=== PATIENT | female | born 2000 | race African-American/Black ===

== ENCOUNTER 2022-10-23 21:16 | Emergency (ER) | payer MEDICAID, OTHER ==
--- NOTE | 2022-10-23 22:37 | ED Physician Documentation ---
History of Present Illness - Stated complaint Stated Complaint: SOA/N/V - Chief complaint Chief Complaint: Resp - History obtained from History obtained from: Patient - Additonal information Additional information: HPI From patient. Patient c/o one week of nausea, vomiting; today has been having difficulty tolerating PO including liquids. This morning, she developed dyspnea, worse with exertion, as well as dry/nonproductive cough. She has had constant but waxing and waning midline anterior chest pain, described as burning, 6 (out of 10) at worst. Denies fever. Earlier today, she took a home test with (+) result. She was not aware she was before this test. This is her first . She says she is approximately 5 weeks . She denies vaginal bleeding but has had some suprapubic cramping, intermittent over past 1-2 days Review of Systems Constitutional: denies: Fever, Chills, Sweats Cardiac: reports: Chest pain / pressure. denies: Palpitations, Pedal edema Respiratory: reports: Dyspnea, Cough. denies: Hemoptysis, Wheezing GI: denies: Reviewed and negative PD PAST MEDICAL HISTORY - Past Medical History Past Medical History: No - Present Medications Home Medications: Ambulatory Orders Medication Instructions Recorded Confirmed Lidocaine Viscous 2% [Xylocaine 15 ml MM Q6HR PRN #100 ml 10/24/22 Viscous 2%] ONDANSETRON ODT Prepack 2 [ZOFRAN 4 mg TL Q6H PRN #14 tablet 10/24/22 ODT Prepack 2] - Allergies Allergies/Adverse Reactions: Allergies Allergy/AdvReac Type Severity Reaction Status Date / Time No Known Drug Allergies Allergy Verified 10/23/22 21:37 - Living Situation Living Arrangement: reports: At home PD ED PE NORMAL - Vitals Vital signs reviewed: Yes - General General: Alert and oriented X 3, No acute distress, Well developed/nourished - HEENT HEENT: Other (tacky mucous membranes) - Neck Neck: Supple, no meningeal sign - Cardiac Cardiac: RRR, No murmur - Respiratory Respiratory: No respiratory distress, Clear bilaterally - Abdomen Abdomen: Normal bowel sounds, Soft, Non tender, Non distended Results - Vitals Vitals: Oxygen O2 Source Room air - EKG (time done) No standard instances EKG releavant findings:: EKG personally interpreted by author of this note. Relevant findings are: Rate: Rate (enter#) (72) Rhythm: NSR Wiggins: Normal Intervals: Normal [place] QRS: Normal Ischemia: Normal ST segments - Labs Labs: Laboratory Tests 10/23/22 10/23/22 10/23/22 22:35 22:35 22:45 WBC 15.5 H RBC 4.34 Hgb 11.8 L Hct 35.6 L MCV 82.0 MCH 27.2 MCHC 33.1 RDW 13.2 Plt Count 308 MPV 10.1 Neut # (Auto) 12.0 H Lymph # (Auto) 2.5 Sibley # (Auto) 0.9 Eos # (Auto) 0.0 Baso # (Auto) 0.0 Absolute Nucleated RBC 0.00 Nucleated RBC % 0.0 Sodium 134 L Potassium 3.8 Chloride 103 Carbon Dioxide 25 Anion Gap 6.0 BUN 10 Creatinine 0.7 Estimated GFR (MDRD) 129 Glucose 107 H Calcium 9.1 Total Bilirubin 0.5 AST 11 ALT 10 Alkaline Phosphatase 56 Total Protein 7.9 Albumin 3.8 Globulin 4.1 Albumin/Globulin Ratio 0.9 L Lipase 31 HCG, Quant 22863.00 Urine Color Urine Clarity Urine pH Ur Specific [place] Urine Protein Urine Glucose (UA) Urine Ketones Urine Occult Blood Urine Nitrite Urine Bilirubin Urine Urobilinogen Ur Leukocyte Esterase Ur Microscopic Review Urine Culture Comments Nasal Adenovirus (PCR) Nasal B. parapertussis DNA (PCR) Nasal Coronavir 229E PCR Nasal Coronavir HKU1 PCR Nasal Coronavir NL63 PCR Nasal Coronavir OC43 PCR Nasal Enterovir/Rhinovir PCR Nasal Influenza B PCR Nasal Influenza A PCR Nasal Parainfluen 1 PCR Nasal Parainfluen 2 PCR Nasal Parainfluen 3 PCR Nasal Parainfluen 4 PCR Nasal RSV (PCR) Nasal B.pertussis DNA PCR Nasal C.pneumoniae (PCR) Ki Human Metapneumo PCR Nasal M.pneumoniae (PCR) Nasal SARS-CoV-2 (PCR) 10/23/22 10/23/22 23:01 23:08 WBC RBC Hgb Hct MCV MCH MCHC RDW Plt Count MPV Neut # (Auto) Lymph # (Auto) Sibley # (Auto) Eos # (Auto) Baso # (Auto) Absolute Nucleated RBC Nucleated RBC % Sodium Potassium Chloride Carbon Dioxide Anion Gap BUN Creatinine Estimated GFR (MDRD) Glucose Calcium Total Bilirubin AST ALT Alkaline Phosphatase Total Protein Albumin Globulin Albumin/Globulin Ratio Lipase HCG, Quant Urine Color YELLOW Urine Clarity CLEAR Urine pH 6.5 Ur Specific [place] 1.020 Urine Protein NEGATIVE Urine Glucose (UA) NEGATIVE Urine Ketones 15 H Urine Occult Blood TRACE-INTA Urine Nitrite NEGATIVE Urine Bilirubin NEGATIVE Urine Urobilinogen 1 (NORMAL) Ur Leukocyte Esterase NEGATIVE Ur Microscopic Review NOT INDICATED Urine Culture Comments NOT INDICATED Nasal Adenovirus (PCR) NOT DETECTED Nasal B. parapertussis DNA (PCR) NOT DETECTED Nasal Coronavir 229E PCR NOT DETECTED Nasal Coronavir HKU1 PCR NOT DETECTED Nasal Coronavir NL63 PCR NOT DETECTED Nasal Coronavir OC43 PCR NOT DETECTED Nasal Enterovir/Rhinovir PCR NOT DETECTED Nasal Influenza B PCR NOT DETECTED Nasal Influenza A PCR NOT DETECTED Nasal Parainfluen 1 PCR NOT DETECTED Nasal Parainfluen 2 PCR NOT DETECTED Nasal Parainfluen 3 PCR NOT DETECTED Nasal Parainfluen 4 PCR NOT DETECTED Nasal RSV (PCR) NOT DETECTED Nasal B.pertussis DNA PCR NOT DETECTED Nasal C.pneumoniae (PCR) NOT DETECTED Ki Human Metapneumo PCR NOT DETECTED Nasal M.pneumoniae (PCR) NOT DETECTED Nasal SARS-CoV-2 (PCR) NOT DETECTED - Rads (name of study) chest xray Relevant Findings:: Prelim report reviewed, EMP independent interpretation of test (I reviewed these images and my interpretation is no acute disease including no evidence of pneumonia, pneumothorax. normal cardiac sillhouette), See rad report 1st trimester OB US Relevant Findings:: Prelim report reviewed, See rad report PD Medical Decision Making - ED course Complexity details: reviewed results, re-evaluated patient, considered differential, d/w patient ED course: Tests ordered and results reviewed by me: CBC, ER abdominal panel, UA, serum HCG quantitative, respiratory PCR panel, EKG, CXR, 1st trimester OB ultrasound. Leukocytosis noted (15.5) on CBC. Minimal hyponatremia (134), normal LFTs. HCG quantitative is 74, 791. UA negative except for 15 ketones. Respiratory PCR panel negative for all viruses tested. CXR is normal. US shows IUP, 6w 1 d, left ovarian cyst, small subchorionic hemorrhage. Patient is given 1 liter IV normal saline, 4mg IV zofran. She reports significant improvement with these measures alone when reevaluated. She asks for something to help with the chest discomfort. The description (midline, from epigastrium going up to mid chest, burning sensation) is suggestive of GERD, and thus she is given 30cc maalox with 15ml viscous lidocaine. She is provided take- home pack of TL zofran, and e-prescribed zofran and viscous lidocaine. Results d/w patient. Etiology of her symptoms is not apparent at this time, but viral URI is strongly suspected. Return precautions reviewed. Advised to follow up with PMD as well as with cardiac rehabilitation specialist Departure - Departure Disposition: 01 Home, Self Care Clinical Impression: Upper respiratory infection Qualifiers: URI type: unspecified URI Qualified Code(s): J06.9 - Acute upper respiratory infection, unspecified Qualifiers: Weeks of gestation: less than 8 weeks Qualified Code(s): Z3A.01 - Less than 8 weeks gestation of Condition: Good Instructions: ED Care, ED URI Viral Follow-Up: Lea Armas DO [Provider Admit Priv/Credential] - Prescriptions: Lidocaine Viscous 2% [Xylocaine Viscous 2%] 15 ml MM Q6HR PRN #100 ml PRN Reason: Heartburn ONDANSETRON ODT Prepack 2 [ZOFRAN ODT Prepack 2] 4 mg TL Q6H PRN #14 tablet PRN Reason: Nausea / Vomiting Comments: Your ultrasound shows a in the uterus that is approximately 6 weeks and 1 days old. There is a small left ovarian cyst, and a small amount of blood accumulated in the uterus adjacent to the . The cause of the accumulation of blood is not apparent, but it is a small size and thus does not have any prognostic value (does not indicate that there will be a problem with the ). Is important that you follow-up with an SILVICULTURIST. Included on these discharge instructions are the name, office information ,and contact phone number for one of the local cardiac rehabilitation specialist groups. You can contact that office and inquire as to whether or not someone in that office would be able to accommodate follow-up for you. Your chest x-ray was normal, the nasal swab was negative for the viruses tested (including COVID and influenza), and your blood work had no concerning findings. I am providing you with a prescription for ondansetron (the antinausea medication that you were given in the emergency department). I am also providing with a prescription for the numbing agent (lidocaine). If you use the lidocaine, I recommend that you mix it with a tablespoon of liquid Maalox to help mask the otherwise unpleasant taste of the lidocaine. Discharge Date/Time: 10/24/22 03:01
[2022-10-23 22:43] LABS: BASOPHILS % (AUTO) 0.2 %; EOSINOPHILS % (AUTO) 0.1 %; HCT - HEMATOCRIT 35.6 % (37.0-47.0); HGB - HEMOGLOBIN 11.8 g/dL (12.0-16.0); LYMPHOCYTES # (AUTO) 2.5 10^3/uL (1.5-3.5); LYMPHOCYTES % (AUTO) 15.8 %; MEAN CORPUSCULAR HEMOGLOBIN 27.2 pg (27.0-31.0); MEAN CORPUSCULAR HGB CONC 33.1 g/dL (32.0-36.0); MEAN PLATELET VOLUME 10.1 fL (7.9-10.8); MONOCYTES # (AUTO) 0.9 10^3/uL (0.0-1.0); NEUTROPHILS % (AUTO) 77.4 %; PLT - PLATELET COUNT 308 10^3/uL (130-450); RED BLOOD COUNT 4.34 10^6/uL (4.20-5.40); RED CELL DISTRIBUTION WIDTH 13.2 % (12.0-15.0); WHITE BLOOD COUNT 15.5 x10^3/uL (4.8-10.8)
[2022-10-23 22:55] LABS: ALBUMIN 3.8 g/dL (3.2-5.5); ALBUMIN/GLOBULIN RATIO 0.9 (1.0-2.2); BILIRUBIN,TOTAL 0.5 mg/dL (0.2-1.0); CALCIUM 9.1 mg/dL (8.5-10.3); CREATININE 0.7 mg/dL (0.4-1.0); POTASSIUM 3.8 mmol/L (3.5-5.0); TOTAL PROTEIN 7.9 g/dL (6.7-8.2)
[2022-10-23] MEDS ORDERED: ONDANSETRON 4 MG/2 ML VIAL IVP STA (23:04)
[2022-10-23] MEDS ORDERED: SODIUM CHLORIDE 0.9% 1,000 ML IV STA (23:04)
[2022-10-23 23:10] LABS: BILIRUBIN,URINE NEGATIVE (NEGATIVE); GLUCOSE, URINE (UA) NEGATIVE (NEGATIVE); KETONES,URINE (UA) 15 mg/dL (NEGATIVE); LEUKOCYTE ESTERASE, URINE NEGATIVE (NEGATIVE); NITRITE,URINE NEGATIVE (NEGATIVE); OCCULT BLOOD,URINE TRACE-INTA (NEGATIVE); PH,URINE 6.5 PH (5.0-7.5); PROTEIN,URINE NEGATIVE (NEGATIVE); UROBILINOGEN,URINE 1 (NORMAL) E.U./dL (NORMAL)
[2022-10-23 23:11] LABS: CLARITY,URINE CLEAR (CLEAR)
[2022-10-24 00:06] LABS: B. PARAPERTUSSIS- RESP PCR PAN NOT DETECTED; B. PERTUSSIS- RESP PCR PANEL NOT DETECTED; C. PNEUMONIAE- RESP PCR PANEL NOT DETECTED; CORONAVIRUS 229E-RESP PCR NOT DETECTED; CORONAVIRUS HKU1-RESP PCR NOT DETECTED; CORONAVIRUS NL63-RESP PCR NOT DETECTED; CORONAVIRUS OC43-RESP PCR NOT DETECTED; HUMAN METAPNEUMOVIRUS NOT DETECTED; INFLUENZA A- RESP PCR PANEL NOT DETECTED; INFLUENZA B - RESP PCR PANEL NOT DETECTED; M. PNEUMONIAE- RESP PCR PANEL NOT DETECTED; PARAINFLUENZA VIRUS 1 NOT DETECTED; PARAINFLUENZA VIRUS 2 NOT DETECTED; PARAINFLUENZA VIRUS 3 NOT DETECTED; PARAINFLUENZA VIRUS 4 NOT DETECTED; RHINOVIRUS/ENTEROVIRUS NOT DETECTED; RSV- RESP PCR PANEL NOT DETECTED; SARS-CoV-2 -RESP PCR PANEL NOT DETECTED
--- NOTE | 2022-10-24 00:36 | XRAY Report ---
PROCEDURE: Chest 1 View X-Ray INDICATIONS: chest pain TECHNIQUE: One view of the chest was acquired. COMPARISON: None. FINDINGS: Surgical changes and devices: None. Lungs and pleura: No pleural effusions or pneumothorax. Lungs are clear. Mediastinum: Mediastinal contours appear normal. Heart size is normal. Bones and chest wall: No suspicious bony lesions. Overlying soft tissues appear unremarkable. IMPRESSION: No acute cardiopulmonary disease. Reviewed by: Kartik Dumont MD on 10/24/2022 12:34 AM PDT Approved by: Kartik Dumont MD on 10/24/2022 12:34 AM PDT Station ID: [id number]
[2022-10-24] MEDS ORDERED: LIDOCAINE VISCOUS 2% 15 ML ORAL SYRINGE MM STA (02:01)
[2022-10-24] MEDS ORDERED: MAG HYDROX/AL HYDROX/SIMETH 30 ML UDC PO STA (02:01)
[2022-10-24] MEDS ORDERED: ONDANSETRON ODT 4 MG Prepack 2 TL PRN (02:01)
--- NOTE | 2022-10-24 02:12 | Ultrasound Report ---
PROCEDURE: OB First Trimester w/TV INDICATIONS: , pelvic cramping OUTSIDE/PRIOR DATING DATA: Last menstrual period (LMP): 09/14/2022. LMP-based estimated date of delivery (AKASH): 06/21/2023. First dating scan (date and location): 10/24/2022. Estimated date of delivery (AKSAH) from first dating scan: 06/18/2023. TECHNIQUE: Real-time scanning was performed of the fetus and maternal pelvic organs, with image documentation. Endovaginal scanning was also performed to better visualize the fetus and maternal ovaries. COMPARISON: None. FINDINGS: Embryo: There is an intrauterine with a gestational sac, yolk sac, and pole in the s traight. The crown-rump length measures up to 0.5 cm corresponding to a gestational age of 6 weeks 1 day. There is heart motion with a rate of 119 beats per minutes. There is a perigestational sub chorionic hematoma measuring up to 2.3 x 1.3 x 2.7 cm. Measurement variability in dating: +/- 4 weeks by LMP, +/- 7 days by mean sac diameter (use before 6 weeks gestation if crown-rump length not able to be measured), +/- 5 days by crown-rump length (6-12 weeks gestation). Maternal organs: Ovaries appear within normal size limits.. There is a mostly anechoic cyst within t he left ovary measuring up to 2.9 cm. IMPRESSION: 1. Single living intrauterine with calculated gestational age of 6 weeks 1 day correspondin g to an estimated delivery date of 06/18/2023, concordant with patient's dates by LMP. 2. Small perigestational subchorionic hematoma. Recommend clinical follow-up and repeat ultrasound if indicated. Reviewed by: Kartik Dumont MD on 10/24/2022 2:11 AM PDT Approved by: Kartik Dumont MD on 10/24/2022 2:11 AM PDT Station ID: [id number]
[2022-10-24 02:59] VITALS: BP 108/62
== END 2022-10-24 03:01 | disposition home or self-care (01) ==
LOC: ED 21:16
DX: O99.511 Diseases of the respiratory system complicating pregnancy, first trimester (principal); J06.9 Acute upper respiratory infection, unspecified; O99.611 Diseases of the digestive system complicating pregnancy, first trimester; R11.2 Nausea with vomiting, unspecified; R10.13 Epigastric pain; O20.8 Other hemorrhage in early pregnancy; O34.81 Maternal care for other abnormalities of pelvic organs, first trimester; N83.202 Unspecified ovarian cyst, left side; Z20.822 Contact with and (suspected) exposure to COVID-19; Z3A.01 Less than 8 weeks gestation of pregnancy
CPT/HCPCS: 36415; 71045; 76801; 76817; 80053; 81003; 83690; 84702; 85025; 87633; 93005; 96374; 99284; A9270; 81001; 87086

== ENCOUNTER 2022-11-07 01:43 | Emergency (ER) | payer MEDICAID ==
[2022-11-07] MEDS ORDERED: ONDANSETRON 4 MG/2 ML VIAL IVP STA (01:58)
[2022-11-07] MEDS ORDERED: SODIUM CHLORIDE 0.9% 1,000 ML IV STA (01:58)
[2022-11-07 02:43] LABS: ALBUMIN 3.8 g/dL (3.2-5.5); ALBUMIN/GLOBULIN RATIO 1.2 (1.0-2.2); ALKALINE PHOSPHATASE 46 IU/L (42-121); ALT ALANINE AMINOTRANSFERASE < 10 IU/L (10-60); AST ASPARTATE AMINOTRANSFERASE 12 IU/L (10-42); BILIRUBIN,TOTAL 0.6 mg/dL (0.2-1.0); BUN - BLOOD UREA NITROGEN 7 mg/dL (6-20); CARBON DIOXIDE - CO2 23 mmol/L (21-32); CHLORIDE 107 mmol/L (101-111); CREATININE 0.6 mg/dL (0.4-1.0); GFR - MDRD 154 (>89); GLUCOSE 93 mg/dL (70-100); LIPASE 35 U/L (22-51); POTASSIUM 3.8 mmol/L (3.5-5.0); SODIUM 137 mmol/L (135-145); TOTAL PROTEIN 7.1 g/dL (6.7-8.2)
--- NOTE | 2022-11-07 03:05 | ED Physician Documentation ---
PD HPI NVD - Stated complaint Stated Complaint: VOMITING - Chief complaint Chief Complaint: Abd Pain - History obtained from History obtained from: Patient - Additonal information Additional information: The patient comes to the emergency department chief complaint of vomiting for the last few weeks. She is about 8 weeks and states that she has had nausea along with today, she has not been able to hold any water down. Patient denies fevers or chills. She denies any dysuria. No abdominal pain though occasionally gets some cramps. No vaginal symptoms. The patient states that is her first . She had some Zofran that she used at home a couple of weeks ago and this helped a little, she states, to the point where she could hold some things down. However, she has run out of that now. No other complaints at this time. PD PAST MEDICAL HISTORY - Present Medications Home Medications: Ambulatory Orders Medication Instructions Recorded Confirmed Lidocaine Viscous 2% [Xylocaine 15 ml MM Q6HR PRN #100 ml 10/24/22 Viscous 2%] ONDANSETRON ODT Prepack 2 [ZOFRAN 4 mg TL Q6H PRN #14 tablet 10/24/22 ODT Prepack 2] Ondansetron Odt [Zofran] 4 mg TL Q6H PRN #10 tablet 11/07/22 Promethazine Supp [Phenergan Supp] 25 mg MA Q12H PRN #12 supp 11/07/22 - Allergies Allergies/Adverse Reactions: Allergies Allergy/AdvReac Type Severity Reaction Status Date / Time No Known Drug Allergies Allergy Verified 10/23/22 21:37 PD ED PE NORMAL - Vitals Vital signs reviewed: Yes - General General: Alert and oriented X 3, No acute distress, Well developed/nourished - HEENT HEENT: Atraumatic, PERRL, EOMI, Moist mucous membranes - Neck Neck: Supple, no meningeal sign - Cardiac Cardiac: RRR, No murmur, Strong equal pulses - Respiratory Respiratory: No respiratory distress, Clear bilaterally - Abdomen Abdomen: Soft, Non tender, Non distended - Derm Derm: Normal color, Warm and dry, No rash - Extremities Extremities: No deformity, No edema - Neuro Neuro: Alert and oriented X 3 - Psych Psych: Normal mood, Normal affect Results - Vitals Vitals: Vital Signs - 24 hr 11/07/22 01:51 Temperature 36.6 C Heart Rate 78 Respiratory 16 Rate Blood Pressure 127/73 O2 Saturation 99 Oxygen O2 Source Room air - Labs Labs: Laboratory Tests 11/07/22 02:26 Sodium 137 Potassium 3.8 Chloride 107 Carbon Dioxide 23 Anion Gap 7.0 BUN 7 Creatinine 0.6 Estimated GFR (MDRD) 154 Glucose 93 Calcium 9.0 Total Bilirubin 0.6 AST 12 ALT < 10 L Alkaline Phosphatase 46 Total Protein 7.1 Albumin 3.8 Globulin 3.3 Albumin/Globulin Ratio 1.2 Lipase 35 PD Medical Decision Making - ED course Complexity details: reviewed results, re-evaluated patient, considered differential, d/w patient ED course: The patient was treated symptomatically with IV fluids, Zofran, and Phenergan, and was worked up with an ER abdominal panel which was unremarkable. I felt the patient was stable for discharge home. We have given her prescriptions for Zofran and Phenergan and discussed the usual indications for return. Departure - Departure Disposition: 01 Home, Self Care Clinical Impression: Vomiting Qualifiers: Vomiting type: bilious vomiting Nausea presence: with nausea Qualified Code(s): R11.14 - Bilious vomiting Qualifiers: Weeks of gestation: 8 weeks Qualified Code(s): Z3A.08 - 8 weeks gestation of Condition: Stable Instructions: ED Preg Morning Sickness Prescriptions: Promethazine Supp [Phenergan Supp] 25 mg MA Q12H PRN #12 supp PRN Reason: Nausea / Vomiting Ondansetron Odt [Zofran] 4 mg TL Q6H PRN #10 tablet PRN Reason: Nausea / Vomiting Comments: Your labs look good. Prescriptions for nausea medications have been electronically transmitted to the [facility] pharmacy in [place], your pharmacy of choice on record. Please use the nausea medicine as needed to help you keep down more what you taken by mouth, especially fluids. Please follow-up with your OB specialist as scheduled.
[2022-11-07] MEDS ORDERED: PROMETHAZINE INJ 25 MG in SODIUM CHLORIDE 0.9% 50 ML IV STA (03:11)
[2022-11-07] MEDS ORDERED: PROMETHAZINE 25 MG/1 ML VIAL ONE (03:21)
[2022-11-07] MEDS ORDERED: MAG HYDROX/AL HYDROX/SIMETH 30 ML UDC PO STA (03:40)
[2022-11-07] MEDS ORDERED: LIDOCAINE VISCOUS 2% 15 ML ORAL SYRINGE MM STA (03:40)
[2022-11-07 04:16] VITALS: BP 120/75
== END 2022-11-07 04:11 | disposition home or self-care (01) ==
LOC: ED 01:43
DX: O21.9 Vomiting of pregnancy, unspecified (principal); Z3A.08 8 weeks gestation of pregnancy
CPT/HCPCS: 36415; 80053; 83690; 96374; 96375; 99283; 99284; A9270; J7040

== ENCOUNTER 2022-12-04 16:19 | Outpatient (CLI) | payer MEDICAID ==
[2022-12-04 16:50] LABS: BASOPHILS % (AUTO) 0.2 %; EOSINOPHILS # (AUTO) 0.1 10^3/uL (0.0-0.7); EOSINOPHILS % (AUTO) 0.5 %; HCT - HEMATOCRIT 32.8 % (37.0-47.0); HGB - HEMOGLOBIN 11.1 g/dL (12.0-16.0); LYMPHOCYTES # (AUTO) 2.3 10^3/uL (1.5-3.5); LYMPHOCYTES % (AUTO) 17.1 %; MEAN CORPUSCULAR HEMOGLOBIN 27.8 pg (27.0-31.0); MEAN CORPUSCULAR HGB CONC 33.8 g/dL (32.0-36.0); MEAN CORPUSCULAR VOLUME 82.2 fL (81.0-99.0); MEAN PLATELET VOLUME 9.8 fL (7.9-10.8); MONOCYTES # (AUTO) 0.7 10^3/uL (0.0-1.0); NEUTROPHILS # (AUTO) 10.3 10^3/uL (1.5-6.6); NEUTROPHILS % (AUTO) 76.3 %; PLT - PLATELET COUNT 257 10^3/uL (130-450); RED BLOOD COUNT 3.99 10^6/uL (4.20-5.40); RED CELL DISTRIBUTION WIDTH 13.9 % (12.0-15.0); WHITE BLOOD COUNT 13.4 x10^3/uL (4.8-10.8)
[2022-12-04 17:07] LABS: BILIRUBIN,URINE NEGATIVE (NEGATIVE); GLUCOSE, URINE (UA) NEGATIVE (NEGATIVE); KETONES,URINE (UA) TRACE mg/dL (NEGATIVE); LEUKOCYTE ESTERASE, URINE NEGATIVE (NEGATIVE); NITRITE,URINE NEGATIVE (NEGATIVE); OCCULT BLOOD,URINE NEGATIVE (NEGATIVE); PH,URINE 6.5 PH (5.0-7.5); PROTEIN,URINE NEGATIVE (NEGATIVE); UROBILINOGEN,URINE 1 (NORMAL) E.U./dL (NORMAL)
[2022-12-04 17:11] LABS: CLARITY,URINE CLOUDY (CLEAR)
[2022-12-04 17:14] LABS: AMORPHOUS SEDIMENT,UR Moderate /LPF; BACTERIA,URINE Few /HPF (None Seen); RBC,URINE 0-5 /HPF (0-5); SQUAMOUS EPITHELIAL CELL,UR RARE Squamous (<= Few); WBC,URINE 0-3 /HPF (0-5)
[2022-12-04 19:12] LABS: CHLAMYDIA TRACHOMATIS DNA NEGATIVE (NEGATIVE); NEISSERIA GONORRHOEAE DNA NEGATIVE (NEGATIVE); TRICHOMONAS VAGINALIS DNA NEGATIVE (NEGATIVE)
[2022-12-05 02:13] LABS: HCV AB Non Reactive (Non Reactive)
[2022-12-05 03:15] LABS: HIV SCREEN 4TH GENERATION Non Reactive (Non Reactive)
[2022-12-05 04:14] LABS: HBsAG SCREEN Negative (Negative)
[2022-12-05 06:15] LABS: RPR Non Reactive (Non Reactive)
[2022-12-05 12:14] LABS: VARICELLA-ZOSTER AB IGG <135 index (Immune >165)
== END 2022-12-04 16:20 | disposition home or self-care (01) ==
LOC: LAB 16:19
PROVIDERS: ATTEND Obstetrics & Gynecology
DX: Z34.00 Encounter for supervision of normal first pregnancy, unspecified trimester (principal); Z36.89 Encounter for other specified antenatal screening
CPT/HCPCS: 36415; 81001; 85025; 86592; 86762; 86787; 86803; 86850; 86900; 86901; 87086; 87340; 87389; 87491; 87591; 87661

== ENCOUNTER 2023-01-04 10:11 | Outpatient (CLI) | payer MEDICAID ==
[2023-01-07 13:10] LABS: AFP MOM 1.07 (.); AFP VALUE 37.2 ng/mL (.); DIA MOM 0.75 (.); DIA VALUE 107.75 pg/mL (.); DSR (BY AGE) 1 IN 1146 (.); DSR (SECOND TRIMESTER) 1 IN 10000 (.); HCG MOM 0.95 (.); HCG VALUE 37357 mIU/mL (.); INSULIN DEP DIABETES No (.); MATERNAL AGE AT EDD 21.1 yr (.); MULTIPLE GESTATION No (.); OPEN SPINA BIFIDA RISK 1 IN 10000 (.); RACE Black (.); RESULTS Report (.); TEST RESULTS *Screen Negative* (.); TRISOMY 18 RISK Not increased (.); UE3 MOM 0.96 (.); UE3 VALUE 0.87 ng/mL (.); WEIGHT 172 lbs (.)
== END 2023-01-04 10:12 | disposition home or self-care (01) ==
LOC: LAB 10:11
PROVIDERS: ATTEND Obstetrics & Gynecology
DX: Z34.00 Encounter for supervision of normal first pregnancy, unspecified trimester (principal)
CPT/HCPCS: 36415; 81511

== ENCOUNTER 2023-01-17 19:18 | Emergency (ER) | payer MEDICAID ==
[2023-01-17 20:08] VITALS: O2SAT 100
--- NOTE | 2023-01-17 20:13 | ED Physician Documentation ---
History of Present Illness - Stated complaint Stated Complaint: PREG, C+,CHEST PX - Chief complaint Chief Complaint: General - History obtained from History obtained from: Patient - Additonal information Additional information: 22-year-old G1, P0 at 17 weeks gestation. She developed symptomatic COVID yesterday with headache, sore throat, dry cough. Prior to getting COVID she actually had some abdominal pain, lower abdomen with mild radiation to the back. No bleeding or fluid loss. PD PAST MEDICAL HISTORY - Present Medications Home Medications: Ambulatory Orders Medication Instructions Recorded Confirmed guaiFENesin/CODEINE [Robitussin AC] 5 - 10 ml PO Q6H PRN #120 ml 01/17/23 - Allergies Allergies/Adverse Reactions: Allergies Allergy/AdvReac Type Severity Reaction Status Date / Time No Known Drug Allergies Allergy Verified 01/17/23 19:59 PD ED PE NORMAL - Vitals Vital signs reviewed: Yes - General General: Alert and oriented X 3, No acute distress - Cardiac Cardiac: RRR, No murmur - Respiratory Respiratory: No respiratory distress, Clear bilaterally - Abdomen Abdomen: Non tender, Other (gravid, bedside u/s fhr 146, +fm) - Neuro Neuro: Alert and oriented X 3, Normal speech Results - Vitals Vitals: Vital Signs - 24 hr 01/17/23 01/17/23 01/17/23 19:20 19:58 20:14 Temperature 37.1 C Heart Rate 101 H 92 102 H Respiratory 19 16 18 Rate Blood Pressure 113/68 113/68 99/58 L O2 Saturation 99 100 100 Oxygen O2 Source Room air - EKG (time done) 1936 EKG releavant findings:: EKG personally interpreted by author of this note. Relevant findings are: Rate: Rate (enter#) (100) Rhythm: Sinus tachycardia Dunning: Normal Intervals: Normal IA QRS: Normal Ischemia: Normal ST segments PD Medical Decision Making - ED course ED course: The abdominal pain proceeded the COVID, she is nontender and this is consistent probably with round ligament pain. She had a reassuring bedside ultrasound with good movement. She appears well and I did not offer antiviral treatment given its uncertainty in . She has been immunized so should have mild illness. Departure - Departure Disposition: 01 Home, Self Care Clinical Impression: COVID-19 Qualifiers: Weeks of gestation: 17 weeks Qualified Code(s): Z3A.17 - 17 weeks gestation of Condition: Good Record reviewed to determine appropriate education?: Yes Instructions: ED Viral Syndrome, ED Preg Established Normal Sxs Prescriptions: guaiFENesin/CODEINE [Robitussin AC] 5 - 10 ml PO Q6H PRN #120 ml PRN Reason: Cough Comments: I sent your prescription electronically to [facility] in [place]. The abdominal pain is most consistent with round ligament pain which is very common. The bedside ultrasound is reassuring. See your OB per routine. But you do need to quarantine for the next 10 days. Tylenol for aches and pains. Drink plenty of fluids. Forms: PCP List, Activity restrictions Discharge Date/Time: 01/17/23 20:18
[2023-01-17 20:17] VITALS: BP 99/58
== END 2023-01-17 20:18 | disposition home or self-care (01) ==
LOC: ED 19:18
DX: O98.512 Other viral diseases complicating pregnancy, second trimester (principal); U07.1 COVID-19; Z3A.17 17 weeks gestation of pregnancy
CPT/HCPCS: 93005; 99283; 99284

== ENCOUNTER 2023-02-19 14:02 | Outpatient (CLI) | payer MEDICAID ==
--- NOTE | 2023-02-19 18:16 | Ultrasound Report ---
PROCEDURE: OB F/U or Repeat INDICATIONS: SUPERVISION OF OUTSIDE/PRIOR DATING DATA: Last menstrual period (LMP): 09/14/2022. LMP-based estimated date of delivery (AKASH): 06/21/2023. First dating scan (date and location): 10/24/2022. Estimated date of delivery (AKASH) from first dating scan: 06/18/2023. The below data below was generated using the clinical AKASH of 06/21/2023 TECHNIQUE: Real-time scanning was performed of the fetus, with image documentation and biometric measurements. Endovaginal scanning: Not performed. COMPARISON: None. FINDINGS: General: A single living intrauterine gestation is present. Presentation: Cephalic Placenta: Placental position is anterior, without previa. Amniotic fluid index: 18.0 cm, 79 percentile for gestational age. heart rate: 145 beats per minute. Maternal cervical canal: 4.9 cm long; normal length is 2.5 cm or more. Estimated gestational age from initial scan: 22 week 4 day Measurement variability in biometric dating: +/- 10 days from 12-20 weeks gestation, +/- 2 weeks from 20-30 weeks gestation, +/- 3 weeks at 30 weeks gestation or more. nose/lips, cardiac 4 chamber as well as ventricular outflow tract, extremities are all well jeremy ged on the current exam is within normal limits. Other: Not applicable. IMPRESSION: Single live intrauterine consistent with 22 week 4 day gestation. Completed anatomy scan within normal limits Reviewed by: Mike Ramirez MD on 02/19/2023 5:15 PM GINO Approved by: Mike Ramirez MD on 02/19/2023 5:15 PM AKKAM[facility] Station ID: [id number]
== END 2023-02-19 14:03 | disposition home or self-care (01) ==
LOC: DI 14:02
PROVIDERS: ATTEND Obstetrics & Gynecology
DX: Z34.02 Encounter for supervision of normal first pregnancy, second trimester (principal)

== ENCOUNTER 2023-03-01 13:38 | Outpatient (CLI) | payer MEDICAID ==
[2023-03-01 13:54] LABS: HGB - HEMOGLOBIN 10.6 g/dL (12.0-16.0); MEAN CORPUSCULAR HEMOGLOBIN 29.3 pg (27.0-31.0); MEAN CORPUSCULAR HGB CONC 33.1 g/dL (32.0-36.0); MEAN CORPUSCULAR VOLUME 88.4 fL (81.0-99.0); MEAN PLATELET VOLUME 9.4 fL (7.9-10.8); RED BLOOD COUNT 3.62 10^6/uL (4.20-5.40); RED CELL DISTRIBUTION WIDTH 14.1 % (12.0-15.0); WHITE BLOOD COUNT 16.5 x10^3/uL (4.8-10.8)
[2023-03-01 14:06] LABS: CREATININE,URINE 144.8 mg/dL; PROTEIN/CREATININE RATIO,URINE 0.2 (<=0.2)
[2023-03-01 14:32] LABS: FERRITIN 10.7 ng/mL (11.0-306.8)
[2023-03-01 14:40] LABS: ALBUMIN 3.9 g/dL (3.2-5.5); ALBUMIN/GLOBULIN RATIO 1.3 (1.0-2.2); BILIRUBIN,TOTAL 0.2 mg/dL (0.2-1.0); CALCIUM 9.3 mg/dL (8.5-10.3); CREATININE 0.5 mg/dL (0.6-1.3); TOTAL PROTEIN 6.8 g/dL (6.4-8.9)
== END 2023-03-01 13:39 | disposition home or self-care (01) ==
LOC: LAB 13:38
PROVIDERS: ATTEND Nurse Practitioner
DX: O99.891 Other specified diseases and conditions complicating pregnancy (principal); R10.9 Unspecified abdominal pain; R04.0 Epistaxis; Z83.2 Family history of diseases of the blood and blood-forming organs and certain disorders involving the immune mechanism; Z36.89 Encounter for other specified antenatal screening
CPT/HCPCS: 36415; 80053; 81599; 82570; 82728; 83020; 84156; 85027

== ENCOUNTER 2023-03-07 16:00 | Outpatient (CLI) | payer MEDICAID ==
[2023-03-08 21:01] LABS: BACTERIAL VAGINOSIS DNA NEGATIVE (NEGATIVE); CANDIDA GLABRATA DNA NEGATIVE (NEGATIVE); CANDIDA GROUP DNA NEGATIVE (NEGATIVE); CANDIDA KRUSEI DNA NEGATIVE (NEGATIVE); TRICHOMONAS VAGINALIS DNA NEGATIVE (NEGATIVE)
[2023-03-08 22:24] LABS: CHLAMYDIA TRACHOMATIS DNA NEGATIVE (NEGATIVE); NEISSERIA GONORRHOEAE DNA NEGATIVE (NEGATIVE)
[2023-03-11 09:08] LABS: HSV-1 DNA Negative (Negative); HSV-2 DNA Negative (Negative)
== END 2023-03-07 23:59 | disposition home or self-care (01) ==
LOC: LAB.WC 16:00
PROVIDERS: ATTEND Nurse Practitioner
DX: Z11.3 Encounter for screening for infections with a predominantly sexual mode of transmission (principal)
CPT/HCPCS: 81514; 87491; 87529; 87591; 87661; 87801

== ENCOUNTER 2023-03-11 16:23 | Outpatient (CLI) | payer MEDICAID ==
[2023-03-13 03:10] LABS: HBsAG SCREEN Negative (Negative)
[2023-03-13 04:09] LABS: RPR Non Reactive (Non Reactive)
[2023-03-13 14:08] LABS: HSV 2 IGG TYPE SPEC <0.91 index (0.00-0.90)
[2023-03-13 20:07] LABS: HCV AB Non Reactive (Non Reactive); HIV SCREEN 4TH GENERATION Non Reactive (Non Reactive)
== END 2023-03-11 16:24 | disposition home or self-care (01) ==
LOC: LAB 16:23
PROVIDERS: ATTEND Nurse Practitioner
DX: N90.89 Other specified noninflammatory disorders of vulva and perineum (principal); Z11.3 Encounter for screening for infections with a predominantly sexual mode of transmission
CPT/HCPCS: 36415; 86592; 86695; 86696; 86803; 87340; 87389

== ENCOUNTER 2023-03-29 08:00 | Outpatient (CLI) | payer MEDICAID ==
[2023-03-29 16:49] LABS: BILIRUBIN,URINE NEGATIVE (NEGATIVE); GLUCOSE, URINE (UA) NEGATIVE (NEGATIVE); KETONES,URINE (UA) NEGATIVE (NEGATIVE); LEUKOCYTE ESTERASE, URINE NEGATIVE (NEGATIVE); NITRITE,URINE NEGATIVE (NEGATIVE); OCCULT BLOOD,URINE NEGATIVE (NEGATIVE); PROTEIN,URINE NEGATIVE (NEGATIVE); UROBILINOGEN,URINE 1 (NORMAL) E.U./dL (NORMAL)
[2023-03-29 16:51] LABS: CLARITY,URINE CLEAR (CLEAR)
[2023-03-29 17:13] LABS: AMORPHOUS SEDIMENT,UR Marked /LPF; BACTERIA,URINE None Seen /HPF (None Seen); RBC,URINE 0-5 /HPF (0-5); SQUAMOUS EPITHELIAL CELL,UR NONE SEEN (<= Few); WBC,URINE 0-3 /HPF (0-5)
== END 2023-03-29 23:59 | disposition home or self-care (01) ==
LOC: LAB 08:00
PROVIDERS: ATTEND Nurse Practitioner
DX: M54.50 Low back pain, unspecified (principal)
CPT/HCPCS: 81001; 87086

== ENCOUNTER 2023-03-29 13:36 | Outpatient (CLI) | payer MEDICAID ==
[2023-03-29 14:47] LABS: HCT - HEMATOCRIT 33.1 % (37.0-47.0); HGB - HEMOGLOBIN 10.9 g/dL (12.0-16.0); MEAN CORPUSCULAR HEMOGLOBIN 29.1 pg (27.0-31.0); MEAN CORPUSCULAR HGB CONC 32.9 g/dL (32.0-36.0); MEAN CORPUSCULAR VOLUME 88.3 fL (81.0-99.0); MEAN PLATELET VOLUME 9.2 fL (7.9-10.8); RED BLOOD COUNT 3.75 10^6/uL (4.20-5.40); RED CELL DISTRIBUTION WIDTH 13.7 % (12.0-15.0); WHITE BLOOD COUNT 12.2 x10^3/uL (4.8-10.8)
== END 2023-03-29 13:37 | disposition home or self-care (01) ==
LOC: LAB 13:36
PROVIDERS: ATTEND Nurse Practitioner
DX: Z34.00 Encounter for supervision of normal first pregnancy, unspecified trimester (principal); Z36.89 Encounter for other specified antenatal screening
CPT/HCPCS: 36415; 82950; 85027

== ENCOUNTER 2023-04-08 13:14 | Emergency (ER) | payer MEDICAID ==
[2023-04-08 13:52] VITALS: BP 105/60; O2SAT 99
--- NOTE | 2023-04-08 14:14 | ED Physician Documentation ---
PD HPI HEENT - Stated complaint Stated Complaint: NOSE BLEED - Chief complaint Chief Complaint: Heent - History obtained from History obtained from: Patient - Additional information Additional information: G1 at 28 weeks had an hour and a half nosebleed today. She had noted some other recent nosebleeds and gum bleeding. She also was feeling numb on the lower abdomen starting today. No cramping or bleeding though. PD PAST MEDICAL HISTORY - Past Medical History Past Medical History: No - Past Surgical History Past Surgical History: No - Present Medications Home Medications: Ambulatory Orders Medication Instructions Recorded Confirmed Ferrous Sulfate [Feosol] 325 mg PO DAILY 04/08/23 04/08/23 Pnv No.95/Ferrous Fum/Folic AC 1 tab ORAL DAILY 04/08/23 04/08/23 [ Tablet] - Allergies Allergies/Adverse Reactions: Allergies Allergy/AdvReac Type Severity Reaction Status Date / Time No Known Drug Allergies Allergy Verified 04/08/23 13:46 - Social History Does the pt smoke?: No Smoking Status: Never smoker Does the pt drink ETOH?: No Does the pt have substance abuse?: No - Immunizations Immunizations are current?: Yes PD ED PE NORMAL - Vitals Vital signs reviewed: Yes - General General: Alert and oriented X 3, No acute distress - HEENT HEENT: Other (Sequela of resolved nosebleed on the left side, no active bleeding) - Abdomen Abdomen: Soft, Non tender - Female Female : Other (Bedside ultrasound showing single live IUP with heart rate 140) - Neuro Neuro: Alert and oriented X 3 Results - Vitals Vitals: Vital Signs - 24 hr 04/08/23 13:39 Temperature 36.5 C Heart Rate 87 Respiratory 14 Rate Blood Pressure 105/60 O2 Saturation 99 Oxygen O2 Source Room air - Labs Labs: Laboratory Tests 04/08/23 14:21 WBC 11.7 H RBC 3.82 L Hgb 10.9 L Hct 33.4 L MCV 87.4 MCH 28.5 MCHC 32.6 RDW 13.9 Plt Count 225 MPV 10.4 PD Medical Decision Making - ED course ED course: CBC showing a stable anemia without thrombocytopenia which was considered given her status and easy bleeding. No nosebleed while here. Departure - Departure Disposition: 01 Home, Self Care Clinical Impression: Nosebleed, Condition: Good Record reviewed to determine appropriate education?: Yes Instructions: ED Nosebleed Comments: Your blood counts were at their baseline with no evidence of low platelet count which we worry sometimes in . Call your doctor to arrange a follow-up appointment, make the next available appointment. In the interim, return anytime if worse or if new symptoms develop. Forms: PCP List
[2023-04-08 14:26] LABS: HCT - HEMATOCRIT 33.4 % (37.0-47.0); HGB - HEMOGLOBIN 10.9 g/dL (12.0-16.0); MEAN CORPUSCULAR HEMOGLOBIN 28.5 pg (27.0-31.0); MEAN CORPUSCULAR HGB CONC 32.6 g/dL (32.0-36.0); MEAN CORPUSCULAR VOLUME 87.4 fL (81.0-99.0); MEAN PLATELET VOLUME 10.4 fL (7.9-10.8); RED BLOOD COUNT 3.82 10^6/uL (4.20-5.40); RED CELL DISTRIBUTION WIDTH 13.9 % (12.0-15.0); WHITE BLOOD COUNT 11.7 x10^3/uL (4.8-10.8)
== END 2023-04-08 14:44 | disposition home or self-care (01) ==
LOC: ED 13:14
DX: O99.891 Other specified diseases and conditions complicating pregnancy (principal); R04.0 Epistaxis; K06.8 Other specified disorders of gingiva and edentulous alveolar ridge; O99.013 Anemia complicating pregnancy, third trimester; D64.9 Anemia, unspecified; Z3A.28 28 weeks gestation of pregnancy
CPT/HCPCS: 36415; 85027; 99283

== ENCOUNTER 2023-05-11 15:05 | Outpatient (CLI) | payer MEDICAID ==
[2023-05-11 15:44] LABS: BILIRUBIN,URINE NEGATIVE (NEGATIVE); GLUCOSE, URINE (UA) NEGATIVE (NEGATIVE); KETONES,URINE (UA) NEGATIVE (NEGATIVE); LEUKOCYTE ESTERASE, URINE TRACE (NEGATIVE); NITRITE,URINE NEGATIVE (NEGATIVE); OCCULT BLOOD,URINE NEGATIVE (NEGATIVE); PROTEIN,URINE NEGATIVE (NEGATIVE); UROBILINOGEN,URINE 1 (NORMAL) E.U./dL (NORMAL)
[2023-05-11 15:46] LABS: CLARITY,URINE HAZY (CLEAR)
[2023-05-11 15:56] LABS: BACTERIA,URINE Moderate /HPF (None Seen); RBC,URINE 0-5 /HPF (0-5); SQUAMOUS EPITHELIAL CELL,UR MOD Squamous (<= Few); WBC,URINE 0-3 /HPF (0-5)
[2023-05-11 16:03] VITALS: BP 113/57
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
[2023-05-11 20:00] LABS: BACTERIAL VAGINOSIS DNA NEGATIVE (NEGATIVE); CANDIDA GLABRATA DNA NEGATIVE (NEGATIVE); CANDIDA GROUP DNA NEGATIVE (NEGATIVE); CANDIDA KRUSEI DNA NEGATIVE (NEGATIVE); TRICHOMONAS VAGINALIS DNA NEGATIVE (NEGATIVE)
[2023-05-11 20:04] LABS: CHLAMYDIA TRACHOMATIS DNA NEGATIVE (NEGATIVE); NEISSERIA GONORRHOEAE DNA NEGATIVE (NEGATIVE)
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
== END 2023-05-11 19:15 | disposition home or self-care (01) ==
LOC: WFO 15:05 → FBP 15:06 → WFO 19:15
PROVIDERS: ATTEND Obstetrics & Gynecology
DX: O26.853 Spotting complicating pregnancy, third trimester (principal); Z3A.34 34 weeks gestation of pregnancy
CPT/HCPCS: 36415; 81001; 81514; 82731; 87086; 87491; 87591; 87661; 99214; 99215

== ENCOUNTER 2023-07-04 12:38 | Outpatient (CLI) | payer MEDICAID ==
[2023-07-04 12:53] LABS: BASOPHILS % (AUTO) 0.4 %; EOSINOPHILS # (AUTO) 0.1 10^3/uL (0.0-0.7); EOSINOPHILS % (AUTO) 1.2 %; HCT - HEMATOCRIT 37.2 % (37.0-47.0); HGB - HEMOGLOBIN 11.9 g/dL (12.0-16.0); LYMPHOCYTES # (AUTO) 2.1 10^3/uL (1.5-3.5); LYMPHOCYTES % (AUTO) 26.5 %; MEAN CORPUSCULAR HEMOGLOBIN 27.9 pg (27.0-31.0); MEAN CORPUSCULAR VOLUME 87.1 fL (81.0-99.0); MEAN PLATELET VOLUME 9.2 fL (7.9-10.8); MONOCYTES # (AUTO) 0.5 10^3/uL (0.0-1.0); MONOCYTES % (AUTO) 5.6 %; NEUTROPHILS # (AUTO) 5.3 10^3/uL (1.5-6.6); NEUTROPHILS % (AUTO) 65.7 %; PLT - PLATELET COUNT 336 10^3/uL (130-450); RED BLOOD COUNT 4.27 10^6/uL (4.20-5.40); RED CELL DISTRIBUTION WIDTH 14.2 % (12.0-15.0)
[2023-07-04 13:04] LABS: BILIRUBIN,URINE NEGATIVE (NEGATIVE); CLARITY,URINE CLEAR (CLEAR); GLUCOSE, URINE (UA) NEGATIVE (NEGATIVE); KETONES,URINE (UA) NEGATIVE (NEGATIVE); LEUKOCYTE ESTERASE, URINE SMALL (NEGATIVE); NITRITE,URINE NEGATIVE (NEGATIVE); OCCULT BLOOD,URINE MODERATE (NEGATIVE); PROTEIN,URINE NEGATIVE (NEGATIVE); UROBILINOGEN,URINE 0.2 (NORMAL) E.U./dL (NORMAL)
[2023-07-04 13:17] LABS: SQUAMOUS EPITHELIAL CELL,UR MOD Squamous (<= Few)
[2023-07-04 13:18] LABS: BACTERIA,URINE Moderate /HPF (None Seen)
== END 2023-07-04 12:39 | disposition home or self-care (01) ==
LOC: LAB 12:38
PROVIDERS: ATTEND Nurse Practitioner
DX: R30.0 Dysuria (principal)
CPT/HCPCS: 36415; 81001; 85025; 87086

== ENCOUNTER 2023-08-05 08:00 | Outpatient (CLI) | payer MEDICAID ==
[2023-08-05 17:46] LABS: CHLAMYDIA TRACHOMATIS DNA NEGATIVE (NEGATIVE); NEISSERIA GONORRHOEAE DNA NEGATIVE (NEGATIVE); TRICHOMONAS VAGINALIS DNA NEGATIVE (NEGATIVE)
== END 2023-08-05 23:59 | disposition home or self-care (01) ==
LOC: LAB.WC 08:00
PROVIDERS: ATTEND Nurse Practitioner
DX: Z11.3 Encounter for screening for infections with a predominantly sexual mode of transmission (principal)
CPT/HCPCS: 87491; 87591; 87661

== ENCOUNTER 2023-08-05 11:00 | Emergency (ER) | payer MEDICAID ==
--- NOTE | 2023-08-05 13:09 | ED Physician Documentation ---
History of Present Illness - Stated complaint Stated Complaint: RT ARM BUMP - Chief complaint Chief Complaint: Ext Problem - Additonal information Additional information: 23-year-old female presents emergency department with a lump to the right wrist. It is on the dorsal aspect of the wrist she says that she first noticed some she is and she has been noticing it getting bigger over time. Full range of motion no injuries no recent trauma. 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 Full range of motion, positive radial pulses, no abrasions no edema no ecchymosis. Results - Vitals Vitals: Vital Signs - 24 hr 08/05/23 08/05/23 11:29 13:28 Temperature 36.4 C L Heart Rate 102 H 68 Respiratory 20 14 Rate Blood Pressure 118/80 132/81 H O2 Saturation 97 100 Oxygen O2 Source Room air PD Medical Decision Making - ED course ED course: 23 she was given orthopedic surgeons contact information to schedule an outpatient [id number] female presents emergency department for right dorsal wrist swelling. The mass appears to be localized it is soft and mobile. Differentials include mass versus abscess versus. I do think that this is a ganglion cyst to the right wrist patient was told to follow-up with orthopedic surgeon outpatient for further evaluation. Patient given return precautions all questions answered safe for discharge home to follow-up with primary care provider if unable to get in with orthopedic surgeon outpatient. Departure - Departure Disposition: 01 Home, Self Care Clinical Impression: Ganglion cyst of dorsum of right wrist Condition: Good Instructions: Cyst Ganglion Hand Follow-Up: [facility] [Provider Group] Comments: Thank you for trusting us with your care, we have evaluated you for a lump on your wrist. This is due to a ganglion cyst and follow-up with an orthopedic surgeon or your primary care provider for referral to a surgeon to have this removed if it is continuing to grow and bother you. There is nothing that we need to do here in the emergency department and you can alternate between Tylenol and ibuprofen if it is bothering you at home. Forms: PCP List Discharge Date/Time: 08/05/23 13:28
[2023-08-05 13:37] VITALS: BP 132/81; O2SAT 100
== END 2023-08-05 13:28 | disposition home or self-care (01) ==
LOC: ED 11:00
DX: O26.899 Other specified pregnancy related conditions, unspecified trimester (principal); M67.431 Ganglion, right wrist; Z11.3 Encounter for screening for infections with a predominantly sexual mode of transmission
CPT/HCPCS: 87491; 87591; 87661; 99281; 99283

== ENCOUNTER 2023-08-21 08:00 | Outpatient (CLI) | payer MEDICAID ==
[2023-08-22 01:43] LABS: BACTERIAL VAGINOSIS DNA NEGATIVE (NEGATIVE); CANDIDA GLABRATA DNA NEGATIVE (NEGATIVE); CANDIDA GROUP DNA POSITIVE (NEGATIVE); CANDIDA KRUSEI DNA NEGATIVE (NEGATIVE); TRICHOMONAS VAGINALIS DNA NEGATIVE (NEGATIVE)
== END 2023-08-21 23:59 | disposition home or self-care (01) ==
LOC: LAB.WC 08:00
PROVIDERS: ATTEND Nurse Practitioner
DX: N89.8 Other specified noninflammatory disorders of vagina (principal)
CPT/HCPCS: 81514

== ENCOUNTER 2023-09-15 11:03 | Emergency (ER) | payer MEDICAID, OTHER ==
--- NOTE | 2023-09-15 11:57 | ED Physician Documentation ---
PD HPI URI - Stated complaint Stated Complaint: CP,FEVER,PFEIFFER - Chief complaint Chief Complaint: Cardiac - History obtained from History obtained from: Patient - History of Present Illness Timing - onset: How many days ago (2-3 days of body aches, fatigue, cough, chest pain with coughing/movement, and some dyspnea.) Timing details: Gradual onset, Still present Associated symptoms: Fever, Sweats, Nasal congestion, Dry cough, Chest pain. No: Bilateral edema, Unilateral edema Similar symptoms before: Has not had sx before Review of Systems Constitutional: reports: Fever, Chills, Myalgias Nose: reports: Rhinorrhea / runny nose, Congestion Cardiac: reports: Chest pain / pressure. 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 HEENT: Tonsil/Adenoidectomy - Present Medications Home Medications: Ambulatory Orders Medication Instructions Recorded Confirmed Albuterol Sulf [Ventolin Hfa 2 - 3 puffs INH QID #1 each 09/15/23 Inhaler] HYDROcod/ACETAM 5/325 [Drayden 5/325] 1 ea PO Q6H PRN #10 tablet 09/15/23 Naproxen 500 mg PO BID #20 tab 09/15/23 - Allergies Allergies/Adverse Reactions: Allergies Allergy/AdvReac Type Severity Reaction Status Date / Time No Known Drug Allergies Allergy Verified 09/15/23 11:33 - Social History Does the pt smoke?: No Smoking Status: Never smoker Does the pt drink ETOH?: No Does the pt have substance abuse?: No - Immunizations Immunizations are current?: Yes - POLST Patient has POLST: No PD ED PE NORMAL - Vitals Vital signs reviewed: Yes - General General: Alert and oriented X 3, No acute distress, Well developed/nourished - HEENT HEENT: Ears normal, Pharynx benign - Neck Neck: Supple, no meningeal sign, No adenopathy - Cardiac Cardiac: RRR, No murmur - Respiratory Respiratory: No respiratory distress, Clear bilaterally (but does have some restricted tidal volume from chest pain and airflow. ) - Abdomen Abdomen: Soft, Non tender, Other ( scar well healing and no signs of infection. ) - Derm Derm: Normal color, Warm and dry - Extremities Extremities: No edema, No calf tenderness / cord Results - Vitals Vitals: Vital Signs - 24 hr 09/15/23 09/15/23 12:47 13:25 Heart Rate 79 81 Respiratory 16 20 Rate Blood Pressure 114/60 O2 Saturation 100 Oxygen O2 Source Room air - EKG (time done) 11:43 EKG releavant findings:: EKG personally interpreted by author of this note. Relevant findings are: Rate: Rate (enter#) (89) Rhythm: NSR [place]: Normal Intervals: Normal MT QRS: Normal Ischemia: Normal ST segments. No: ST elevation c/w ischemia, ST depression - Rads (name of study) chest xray Relevant Findings:: Prelim report reviewed, EMP independent interpretation of test (no acute process. ) PD Medical Decision Making - ED course Complexity details: reviewed results (chest xray without abnormality. ECG done by nursing triage for CP is normal. There is chestwall tenderness so some component of costchondral inflammation. She did feel better breathing with Albuterol MDI here even though no overt wheeze per se. h/o asthma and presume flare of that. ), considered differential (gradual onset of URI type symptoms, with cough, fevers, aches, chest pain. Is 2 1/2 months post without any wound infection, leg edema, inactivity. normal vitals. Low Wells criteria. ), d/w patient Departure - Departure Disposition: Home, Self Care Clinical Impression: Acute viral syndrome, History of asthma Chest pain Qualifiers: Chest pain type: unspecified Qualified Code(s): R07.9 - Chest pain, unspecified Condition: Stable Record reviewed to determine appropriate education?: Yes Instructions: ED Chest Pain Costochondritis Follow-Up: Brooke Roach ARNP [Primary Care Provider] - Prescriptions: Naproxen 500 mg PO BID #20 tab HYDROcod/ACETAM 5/325 [Drayden 5/325] 1 ea PO Q6H PRN #10 tablet PRN Reason: Pain Albuterol Sulf [Ventolin Hfa Inhaler] 2 - 3 puffs INH QID #1 each Comments: Your chest x-ray is clear without any signs of pneumonia nor fluid collected etc. Given your feeling of muscle aches and pain in the chest along with some tenderness in the chest wall, I am presuming likely to be a viral type illness with some inflammatory component. I would suggest to stay well-hydrated. Use an anti-inflammatory regularly. We can try naproxen 500 mg twice daily rather than the one you have been taking at home. To that add acetaminophen/Tylenol 500 650 mg 4 times daily for pain. To help with the breathing, I would suggest the albuterol inhaler 2 to 3 puffs 4 times daily for the next several days to week. For pain itself if the above is insufficient, add hydrocodone pain medicine every 6-8 hours if needed. I would anticipate improving over several more days. Most viral type illnesses presuming this is will last about a week to 10 days. Recheck if not improving well over the next few days and symptoms are not con trolled well. I sent your prescriptions to preferred pharmacy. Forms: PCP List Discharge Date/Time: 09/15/23 13:27
[2023-09-15] MEDS: ACETAMINOPHEN 500 MG TABLET PO STA (12:31)
[2023-09-15] MEDS: NAPROXEN 250 MG TABLET PO STA (12:31)
[2023-09-15] MEDS: ALBUTEROL 1 PUFF INH STA (12:38)
--- NOTE | 2023-09-15 13:02 | XRAY Report ---
PROCEDURE: Chest 1V INDICATIONS: chest pain TECHNIQUE: One view of the chest was acquired. COMPARISON: 10/23/2022 FINDINGS: Surgical changes and devices: None. Lungs and pleura: An incomplete inspiratory result is noted, with low lung volumes and crowding of t he vascular markings. No focal infiltrates are seen. No large pneumothorax or large pleural effusion can be seen. Mediastinum: Mediastinal contours appear normal. Heart size is normal. Bones and chest wall: No suspicious bony lesions. Overlying soft tissues appear unremarkable. IMPRESSION: Limited portable chest examination, without an acute abnormality identified. Reviewed by: Ata Herring MD on 09/15/2023 12:01 PM GINO Approved by: Ata Herring MD on 09/15/2023 12:01 PM GINO Station ID: [id number]
[2023-09-15 13:37] VITALS: BP 114/60; O2SAT 100
== END 2023-09-15 13:27 | disposition home or self-care (01) ==
LOC: ED 11:03
DX: B34.9 Viral infection, unspecified (principal); R07.9 Chest pain, unspecified; J45.909 Unspecified asthma, uncomplicated; Z79.899 Other long term (current) drug therapy
CPT/HCPCS: 71045; 93005; 94640; 94664; 99284; A9270

== ENCOUNTER 2023-11-06 14:48 | Emergency (ER) | payer OTHER ==
[2023-11-06 15:23] VITALS: O2SAT 100
--- NOTE | 2023-11-06 15:40 | ED Physician Documentation ---
PD HPI SKIN - Stated complaint Stated Complaint: NECK SKIN IRRITATION - Chief complaint Chief Complaint: Wound - History obtained from History obtained from: Patient - Additional information Additional information: 23-year-old female who is approximately 4 months presents with Rash, with somewhat thickened skin around the neck and underneath her breast. It is mildly pruritic. It feels a bit uncomfortable when she turns her head [id number] due to the tightness she feels on her skin. She states she noticed it about 4 to 5 days ago. She is breast-feeding, otherwise feels well, no skin erythema, no drainage. She has not attempted any treatment for this. 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 HEENT: Tonsil/Adenoidectomy - Present Medications Home Medications: Ambulatory Orders Medication Instructions Recorded Confirmed Clotrimazole 1% Cream [Lotrimin 1% 1 applic TP BID #30 gm 11/06/23 Cream] - Allergies Allergies/Adverse Reactions: Allergies Allergy/AdvReac Type Severity Reaction Status Date / Time No Known Drug Allergies Allergy Verified 11/06/23 15:07 - Social History Does the pt smoke?: No Smoking Status: Never smoker Does the pt drink ETOH?: No Does the pt have substance abuse?: No - Immunizations Immunizations are current?: Yes - POLST Patient has POLST: No PD ED PE NORMAL - Vitals Vital signs reviewed: Yes - General General: Alert and oriented X 3, No acute distress, Well developed/nourished - HEENT HEENT: Atraumatic, Moist mucous membranes - Neck Neck: Supple, no meningeal sign, Other (Mildly dark and thickened skin around the neck, no erythema no lesions) - Derm Derm: Normal color, Warm and dry, Other (Darkened skin underneath both breasts moist appearing) Results - Vitals Vitals: Vital Signs - 24 hr 11/06/23 15:01 Temperature 37.1 C Heart Rate 65 Respiratory 16 Rate Blood Pressure 112/63 O2 Saturation 100 Oxygen O2 Source Room air PD Medical Decision Making - ED course Complexity details: considered differential, d/w patient ED course: 23-year-old female presented with dark in pruritic skin around the neck and then into the breast. Differentials considered Included acanthosis nigricans, yeast, less likely cellulitis. I recommended keeping area clean and dry, avoid excess moisture, I will apply clotrimazole ointment. Will also check the patient's blood sugar. She was in her encouraged to establish primary care and follow-up with PCP if persists. Departure - Departure Disposition: 01 Home, Self Care Clinical Impression: Acanthosis nigricans, Yeast dermatitis Condition: Good Instructions: ED Candidiasis Cutaneous Prescriptions: Clotrimazole 1% Cream [Lotrimin 1% Cream] 1 applic TP BID #30 gm Comments: Please establish a primary care provider for follow up. Avoid excess moisture to the area, allow to dry/air out Forms: PCP List
[2023-11-06 16:14] VITALS: BP 115/60
== END 2023-11-06 16:12 | disposition home or self-care (01) ==
LOC: ED 14:48
DX: L83 Acanthosis nigricans (principal); B37.2 Candidiasis of skin and nail
CPT/HCPCS: 99282; 99283